=== PATIENT | female | born 1960 | race Caucasian/White ===

== ENCOUNTER 2021-01-08 10:18 | Outpatient (CLI) | payer OTHER, SELFPAY | END 2021-01-08 10:19 | disposition home or self-care (01) | LOC: CSHMAMMO 10:18 | PROVIDERS: ATTEND Student in an Organized Health Care Education/Training Program | DX: Z12.31 Encounter for screening mammogram for malignant neoplasm of breast (principal); Z85.828 Personal history of other malignant neoplasm of skin | CPT/HCPCS: 77063; 77067 ==

== ENCOUNTER 2022-10-17 12:58 | Outpatient (CLI) | payer OTHER | END 2022-10-17 12:59 | disposition home or self-care (01) | LOC: CSHMAMMO 12:58 | PROVIDERS: ATTEND Student in an Organized Health Care Education/Training Program | DX: Z12.31 Encounter for screening mammogram for malignant neoplasm of breast (principal); Z85.828 Personal history of other malignant neoplasm of skin | CPT/HCPCS: 77063; 77067 ==

== ENCOUNTER 2024-01-18 09:49 | Outpatient (CLI) | payer OTHER | END 2024-01-18 09:50 | disposition home or self-care (01) | LOC: CSHMAMMO 09:49 | PROVIDERS: ATTEND Nurse Practitioner Family | DX: Z12.31 Encounter for screening mammogram for malignant neoplasm of breast (principal); Z85.828 Personal history of other malignant neoplasm of skin | CPT/HCPCS: 77063; 77067 ==

== ENCOUNTER 2025-01-29 12:47 | Outpatient (CLI) | payer OTHER | END 2025-01-29 12:48 | disposition home or self-care (01) | LOC: CSHMAMMO 12:47 | PROVIDERS: ATTEND Nurse Practitioner Family | DX: Z12.31 Encounter for screening mammogram for malignant neoplasm of breast (principal); Z85.828 Personal history of other malignant neoplasm of skin; R92.333 Mammographic heterogeneous density, bilateral breasts | CPT/HCPCS: 77063; 77067 ==